=== PATIENT | female | born 1980 | race Caucasian/White ===

== ENCOUNTER 2024-09-02 21:40 | Emergency (ER) | payer MEDICARE, MEDICAID, SELFPAY ==
[2024-09-02 21:55] VITALS: BP 105/61; PULSE 123; RESP 24; TEMP 37.1; O2SAT 98
--- NOTE | 2024-09-02 22:11 | PC.NURSE ---
attempted to get blood work on patient but this RN was unable to find venous access for labs. 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
[2024-09-03 00:15] LABS: Basophils Percent Auto 0.5 % (0.2-1.2); Eosinophils Absolute Auto 0.1 K/mm3 (0-0.3); Eosinophils Percent Auto 0.8 % (0-4.4); Hematocrit 21.8 % (37.0-47.0); Immature Granulocyte Absolute 0.04 K/mm3 (0.00-0.031); Immature Granulocyte Percent A 0.6 % (0-0.5); Lymphocytes Absolute Auto 1.78 K/mm3 (0.9-3.2); Lymphocytes Percent Auto 28.3 % (18.3-44.2); Mean Corpuscular HGB Conc 31.2 g/dl (32-36); Mean Corpuscular Hemoglobin 22.3 pg (26-34); Mean Corpuscular Volume 71.5 fl (80-100); Monocytes Percent Auto 15.7 % (2.6-8.5); Neutrophils Absolute Auto 3.4 K/mm3 (1.3-6.7); Neutrophils Percent Auto 54.1 % (45.5-73.1); Platelet Count Result 353 k/mm3 (150-375); Red Blood Count 3.05 M/mm3 (4.2-5.4); Red Cell Distribution Width 17.6 % (11.5-14.5); White Blood Count 6.3 K/mm3 (4.5-10.0)
[2024-09-03 00:20] LABS: Hemoglobin 6.8 g/dL (12.0-15.0)
[2024-09-03 00:24] LABS: Magnesium 1.7 mg/dL (1.6-2.3)
[2024-09-03 00:32] LABS: Alanine Aminotransferase 12 U/L (6-35); Albumin Level 2.6 g/dL (3.5-5.1); Alkaline Phosphatase 113 U/L (38-126); Anion Gap 9 mmol/L (4-12); Aspartate Amino Transferase 19 U/L (14-36); Bilirubin,Total 0.3 mg/dL (0.2-1.3); Blood Urea Nitrogen 9 mg/dL (7-17); Calcium 7.3 mg/dL (8.4-10.2); Carbon Dioxide 22 mmol/L (22-30); Chloride 106 mmol/L (98-107); Estimated CRCL calculation 119 ml/min; Estimated Glomerular Filt Rate > 60; Glucose 116 mg/dL (65-110); Lipase 72 U/L (23-300); Potassium 2.8 mmol/L (3.4-5.0); Sodium 137 mmol/L (137-145)
[2024-09-03 00:35] LABS: Troponin I < 0.012 ng/mL (0.000-0.034)
[2024-09-03 00:47] LABS: INR 1.1; Partial Thromboplastin Time 41.7 Seconds (22.3-36.8); Prothrombin Time 14.3 Seconds (11.1-14.7)
[2024-09-03 00:50] LABS: Band Neutrophils Percent 0 % (0-6); Platelet Estimate Adequate (Adequate); Smudge Cells PRESENT
[2024-09-03 00:51] LABS: Anisocytosis 1+; Hypochromasia 1+; Schistocytes None Seen
[2024-09-03] MEDS: HYDROcodone/acetaminophen (*CRX) 7.5-325 MG TABLET 1 TAB PO (01:21)
[2024-09-03] MEDS: POTASSIUM CHLORIDE 20 MEQ PACKET (FOR LIQUID) 40 MEQ PO (01:22)
--- NOTE | 2024-09-03 01:29 | ED.GENADULT ---
HPI - General Adult General Chief complaint: Unspecified Stated complaint: sob, left ankle injury? Time Seen by Provider: 09/03/24 00:30 History of Present Illness HPI narrative: Patient is 44-year-old female who presents emergency department this evening with multiple complaints. Patient states that approximately 2 days ago she twisted her left ankle after a fall. Patient was recently seen at [facility] for a different complaint and signed out AMA. Patient is stating that she will not be admitted and will not stay in the hospital, refusing IV, only wants pain medications for her left ankle. Patient does have a cough and when asked regarding this she states that she always has a cough secondary to history of asthma/COPD. No wheezing noted. Admits that she does have some right-sided chest wall pain while she coughs. Related Data Allergies Allergy/AdvReac Type Severity Reaction Status Date / Time Penicillins Allergy Mild Hives / Verified 09/03/24 02:17 Red Face Review of Systems Review of Systems: All systems are reviewed and are negative unless stated otherwise in the HPI. Exam Narrative: General: Alert, awake, afebrile, in no acute distress. HEENT: PERRL, no rhinorrhea, no post nasal drip, oropharynx clear. Neck: Trachea midline, no JVD, no lymphadenopathy. Cardiovascular: Regular rate and rhythm, no murmurs, rubs or gallops, no peripheral edema. Respiratory: Clear to auscultation bilaterally, no tachypnea, no wheezing, no rhonchi, no rubs, no respiratory distress. Abdomen: Soft, nontender, nondistended, no rebound, no guarding, no peritoneal signs. Musculoskeletal: Moderate swelling noted to the left ankle joint with tenderness palpation over the lateral malleoli, intact PT DP pulses, patient is neurovascularly intact. Skin: No rashes or petechia, no signs of infection. Psychiatric: Alert and oriented, normal behavior and judgment for situation. Neurological: Alert and oriented to person, place, and time. Follows all commands. No focal deficits, speech is clear and fluent. Course Vital Signs Vital signs: Vital Signs Temperature 98.7 F 09/02/24 21:55 Pulse Rate 123 H 09/02/24 21:55 Respiratory Rate 24 H 09/02/24 21:55 Blood Pressure 105/61 09/02/24 21:55 Pulse Oximetry 98 09/02/24 21:55 Temperature 98.7 F 09/02/24 21:55 Pulse Rate 123 H 09/02/24 21:55 Respiratory Rate 25 H 09/03/24 02:02 Blood Pressure 105/61 09/02/24 21:55 Pulse Oximetry 97 09/03/24 02:02 Medical Decision Making MDM Narrative Medical decision making narrative: The patient was evaluated by myself in the emergency department. History is obtained from patient who is an independent historian and physical exam was performed. External medical records were reviewed at this time. Blood work was obtained, however, patient declined IV start stating that she is a hard stick and is currently refusing IV. Patient was administered an oral Verona 7.5/325 mg for her left ankle pain. Patient is also requesting IM Solu-Medrol to help with her cough/shortness of breath stating that she has a history of asthma. Patient does not have any wheezing on lung examination but she is coughing frequently. Laboratory results obtained revealing hemoglobin of 6.8, patient states that she does have a history of anemia and her hemoglobin does run low but she does not know what her baseline is. She states that she has iron deficiency anemia but has not been taking her iron pills as she is supposed to. States that her stools have been brown in color and denies any melena or hematochezia. Patient is refusing any blood transfusion and states that she does not want to be admitted and is going to be signing out against medical advice. Potassium was noted to be low at 2.8 and at this time patient was administered 40 mEq of oral potassium. Patient's calcium was noted to be low at 7.3, however, after adjusting for albumin revealed a value of 8. Imaging studies obtained included CXR and left ankle x-ray which was independently interpreted by me revealing a right lobar pneumonia and an oblique fracture of the distal fibula with minimal displacement, equivocal mild widening of the medial space of the ankle mortise. At this time, patient was informed of these findings at bedside and that she will need to be placed on an oral antibiotic. She was placed on a posterior short-leg with stirrup splint this time. Patient states that she does have an orthopedic surgeon that she follows up with and wants to follow-up with them. Differential diagnosis considerations include infectious process such as pneumonia, blood loss anemia versus iron deficiency anemia, pneumonia, fractures, dislocations. Comorbidities impacting this visit include medical noncompliance. I have evaluated and discussed social determinants of health with the patient that could potentially impact subsequent diagnosis and treatment plans. On repeat assessment of the patient, reevaluation revealed that the patient is doing well and is in no acute distress. Patient symptoms have improved since she arrived to our emergency department. Repeat vital signs were all reviewed and noted to be stable. Differential diagnosis and treatment plan were discussed with the patient at bedside. Patient agrees with discussion and after shared medical decision making agrees with discharge. All questions were answered to the patient's satisfaction. Patient will follow up with Orthopedics in 3-5 days. Script for doxycycline and Verona were provided to the patient to take as up prescribed for her pneumonia and as needed for her left ankle fracture. Patient was provided with strict return precautions and instructed to return to the emergency department if any new or worsening symptoms develop. The patient was discharged against medical advice in stable condition. Vital Signs Vital Signs: Vital Signs Temperature 98.7 F 09/02/24 21:55 Pulse Rate 123 H 09/02/24 21:55 Respiratory Rate 24 H 09/02/24 21:55 Blood Pressure 105/61 09/02/24 21:55 Pulse Oximetry 98 09/02/24 21:55 Temperature 98.7 F 09/02/24 21:55 Pulse Rate 123 H 09/02/24 21:55 Respiratory Rate 25 H 09/03/24 02:02 Blood Pressure 105/61 09/02/24 21:55 Pulse Oximetry 97 09/03/24 02:02 Lab Data 09/03/24 00:05 09/03/24 00:05 Labs: Lab Results 09/03/24 Range/Units 00:05 WBC 6.3 (4.5-10.0) K/mm3 RBC 3.05 L (4.2-5.4) M/mm3 Hgb 6.8 L* (12.0-15.0) g/dL Hct 21.8 L (37.0-47.0) % MCV 71.5 L (80-100) fl MCH 22.3 L (26-34) pg MCHC 31.2 L (32-36) g/dl RDW 17.6 H (11.5-14.5) % Plt Count 353 (150-375) k/mm3 MPV 9.0 (7.4-10.4) fl Immature Gran % (Auto) 0.6 H (0-0.5) % Neut % (Auto) 54.1 (45.5-73.1) % Lymph % (Auto) 28.3 (18.3-44.2) % [place] % (Auto) 15.7 H (2.6-8.5) % Eos % (Auto) 0.8 (0-4.4) % Baso % (Auto) 0.5 (0.2-1.2) % Lymph # (Auto) 1.78 (0.9-3.2) K/mm3 [place] # (Auto) 1.0 H (0.1-0.6) K/mm3 Eos # (Auto) 0.1 (0-0.3) K/mm3 Baso # (Auto) 0.0 (0.0-0.1) K/mm3 Abs Immat Gran (auto) 0.04 H (0.00-0.031) K/mm3 Absolute Neuts (auto) 3.4 (1.3-6.7) K/mm3 Absolute Nucleated RBC 0.000 (0.0-0.012) K/mm3 Band Neutrophils % 0 (0-6) % Nucleated RBC % 0.0 (0.0-0.2) % Smudge Cells Present Platelet Estimate Adequate (Adequate) Hypochromasia 1+ Anisocytosis 1+ Schistocytes None seen PT 14.3 (11.1-14.7) Seconds INR 1.1 APTT 41.7 H (22.3-36.8) Seconds Sodium 137 (137-145) mmol/L Potassium 2.8 L* (3.4-5.0) mmol/L Chloride 106 (98-107) mmol/L Carbon Dioxide 22 (22-30) mmol/L Anion Gap 9 (4-12) mmol/L BUN 9 (7-17) mg/dL Creatinine 0.61 L (0.7-1.0) mg/dL Estim Creat Clear Calc 119 ml/min Estimated GFR > 60 (59 - ) Glucose 116 H (65-110) mg/dL Calcium 7.3 L (8.4-10.2) mg/dL Magnesium 1.7 (1.6-2.3) mg/dL Total Bilirubin 0.3 (0.2-1.3) mg/dL AST 19 (14-36) U/L ALT 12 (6-35) U/L Alkaline Phosphatase 113 (38-126) U/L Troponin I < 0.012 (0.000-0.034) ng/mL Total Protein 6.0 L (6.3-8.2) g/dL Albumin 2.6 L (3.5-5.1) g/dL Lipase 72 (23-300) U/L Blood Type O Negative Antibody Screen Negative Crossmatch See Detail Discharge Plan Discharge Clinical Impression: Microcytic anemia, History of iron deficiency anemia, Lobar pneumonia, Ankle fracture, left, Acute hypokalemia Patient Disposition: Left Against Medical Advice Condition: Stable Instructions: Ankle Fracture (DC), Hypokalemia (ED), Bacterial Pneumonia (ED), Anemia (ED) Additional Instructions: Please follow-up with your orthopedic surgeon within the next 3-5 days regarding your left ankle fracture. You were informed that he will hemoglobin today was below 7, 6.8 and you recommended hospital admission and blood transfusion, however, you declined and elected to be discharged against our medical advice. He will need to follow-up with your primary care physician regarding your anemia which is likely iron deficiency given your history. Return to the ED if any new or worsening symptoms develop. Patient Language: Citizen Of [place] Prescriptions: New doxycycline hyclate 100 mg capsule 100 mg PO BID 5 Days Qty: 10 0RF hydrocodone-acetaminophen 5-325 mg tablet 1 tablet PO Q8H PRN (Reason: pain) Qty: 10 0RF Follow-up/Referrals: UNKNOWN,DOCTOR [Primary Care Provider] - Time of Disposition: 02:13
[2024-09-03] MEDS: methylPREDNISolone SOD SUCC 125 MG VIAL IM (01:50)
[2024-09-03 02:02] VITALS: RESP 25; O2SAT 97
[2024-09-03 02:08] VITALS: PULSE 126; RESP 18; O2SAT 98
[2024-09-03 02:55] VITALS: BP 102/60; PULSE 124; RESP 18; O2SAT 98
== END 2024-09-03 03:29 | disposition left against medical advice (07) ==
PROVIDERS: Emergency Provider Emergency Medicine
DX: S82.832A Other fracture of upper and lower end of left fibula, initial encounter for closed fracture (principal); J18.9 Pneumonia, unspecified organism; D50.9 Iron deficiency anemia, unspecified; E87.6 Hypokalemia; R00.0 Tachycardia, unspecified; R94.31 Abnormal electrocardiogram [ECG] [EKG]; W19.XXXA Unspecified fall, initial encounter; X50.9XXA Other and unspecified overexertion or strenuous movements or postures, initial encounter
CPT/HCPCS: 29515; 36415; 71045; 73610; 80053; 83690; 83735; 84484; 85025; 85610; 85730; 86850; 86900; 86901; 93005; 96372; 99284; A9270; J2919